=== PATIENT | female | born 2000 | race Caucasian/White ===

== ENCOUNTER 2023-01-19 15:35 | Emergency (ER) | payer OTHER ==
[~2023-01-19] VITALS: Ht 162.6 cm; Wt 52.6 kg
[2023-01-19 16:38] LABS: BILIRUBIN, URINE NEGATIVE (negative); BLOOD/HGB, URINE TRACE-I (Negative); KETONE, URINE >=80 (Negative); LEUK ESTERASE, URINE NEGATIVE (negative); NITRITE, URINE NEGATIVE (negative)
[2023-01-19 16:47] LABS: BACTERIA, URINE NONE SEEN /hpf (negative); CASTS, URINE NONE SEEN \\lpf; COLLECTION TYPE, URINE CLEAN CATCH; CRYSTALS, URINE NONE SEEN (0-1+); EPITHELIAL CELLS, URINE SQUAMOUS 1+ /lpf (0-1+); RED BLOOD CELLS, URINE 0-1 /hpf (0-5); REFLEX CULTURE, URINE No (No)
[2023-01-19 16:48] LABS: BASOPHILS 0.4 % (0-2); EOSINOPHILS 0.1 % (0-6); HEMATOCRIT 35.5 % (35.0-50.0); HEMOGLOBIN 11.6 g/dL (12.0-18.0); LYMPHOCYTES 5.1 % (24-44); MCH 25.5 (27-36); MCHC 32.6 g/dl (30-36); MCV 78.3 fl (81-99); MONOCYTES 5.9 % (0-12); NEUTROPHILS 88.5 % (39-80); PLATELET COUNT 293 K/uL (140-440); RBC 4.53 M/ul (4.3-5.7); RDW 14.1 (10.5-15.0)
[2023-01-19 17:02] LABS: ALBUMIN 4.1 g/dL (3.4-5.0); ALBUMIN/GLOBULIN RATIO 1.37 (1.1-2.4); ANION GAP 14.5 (7-21); BILIRUBIN, TOTAL 0.8 ng/dL (0.2-1.0); BUN/CREATININE RATIO 13.33 (6.0-28.6); CALCIUM 8.7 mg/dL (8.5-10.1); CREATININE, SERUM 0.6 mg/dL (0.55-1.02); POTASSIUM 3.5 mmol/L (3.5-5.1); PROTEIN, TOTAL 7.1 g/dL (6.4-8.2)
[2023-01-19 18:08] LABS: N. GONORRRHOEAE BY PCR NOT DETECTED (NOT DETECT)
[2023-01-19] MEDS ORDERED: ONDANSETRON ODT8 MG PO (19:23)
[2023-01-19] MEDS ORDERED: DICYCLOMINE HCL10 MG PO (19:23)
[2023-01-19 19:49] VITALS: BP 100/63
== END 2023-01-19 19:50 | disposition home or self-care (01) ==
LOC: ED 15:35
PROVIDERS: Emergency Medicine
DX: R10.32 Left lower quadrant pain (principal)
CPT/HCPCS: 36415; 74177; 76830; 76856; 80053; 81001; 84703; 85025; A9270; J1885; Q9967